=== PATIENT | female | born 1950 | race Hispanic/Latino ===

== ENCOUNTER → 2017-05-07 | Outpatient (CLI) | payer OTHER | LOC: MAMMO 12:10 | PROVIDERS: ATTEND Internal Medicine | DX: Z12.31 Encounter for screening mammogram for malignant neoplasm of breast (principal) | CPT/HCPCS: 77067 ==

== ENCOUNTER → 2019-10-22 | Outpatient (CLI) | payer OTHER ==
[~2019-10-22] MED LIST: FAMOTIDINE20 MG PO; FERROUS SULFAT325 MG PO; FUROSEMIDE20 MG PO; GABAPENTIN300 MG PO; GLIPIZIDE5 MG PO; LIPITOR10 MG PO; LOSARTAN POTAS100 MG PO; METFORMIN HCL500 MG PO; PANTOPRAZOLE SO20 MG PO; PROPRANOLOL HCL10 MG PO; PROTONIX40 MG/ML; SPIRONOLACTONE25 MG PO; folic acid PO
--- NOTE | 2019-10-22 14:04 | Diagnostic Imaging Report ---
EXAM: US PELVIS COMPLETE NON OB DATE: 10/22/2019 1:01 PM INDICATION: Abnormal uterine and vaginal bleeding COMPARISON: None FINDINGS: Transabdominal and transvaginal images of the pelvis were obtained. The uterus measures 8.1 x 4.0 x 4.8 cm. Multiple nabothian cysts are noted within the cervix. There is a heterogeneous intramural fibroid identified within the uterine fundus measuring 2.5 x 2.3 x 2.5 cm. The endometrial stripe is obscured by the uterine fibroid but otherwise appears grossly unremarkable. The ovaries are not visualized transabdominal or transvaginally which may be secondary to their small size and probably adjacent bowel gas. No abnormal adnexal masses are identified. There is a small to moderate amount of free pelvic fluid visualized of unknown etiology. IMPRESSION: Single fibroid identified within the uterine fundus. Nonvisualization of the ovaries which may be secondary to their small size and prominent bowel gas. Small to moderate bowing of free pelvic fluid of unknown etiology. Signed by: Dr. Teodoro Mcintosh MD on 10/22/2019 2:01 PM
== END ==
LOC: US 11:52
PROVIDERS: ATTEND Internal Medicine
DX: N93.9 Abnormal uterine and vaginal bleeding, unspecified (principal); B37.3 Candidiasis of vulva and vagina
CPT/HCPCS: 76830; 76856

== ENCOUNTER → 2019-11-03 | Day surgery (SDC) | payer OTHER ==
[2019-10-30 10:50] LABS: BASOPHILS % 0.5 % (0.0-1.0); EOSINOPHILS # (AUTO) 0.1 (0.0-0.4); EOSINOPHILS % 3.8 % (0.0-6.0); HEMATOCRIT 33.1 % (34.2-44.1); HEMOGLOBIN 10.7 g/dL (12.0-16.0); LYMPHOCYTES # (AUTO) 0.4 (1.0-3.2); LYMPHOCYTES % 9.7 % (18.0-39.1); MEAN CORPUSCULAR HEMOGLOBIN 30.9 pg (28-32); MEAN CORPUSCULAR HGB CONC 32.3 g/dL (31-35); MEAN CORPUSCULAR VOLUME 95.7 fL (81-99); MONOCYTES # (AUTO) 0.4 (0.2-0.8); MONOCYTES % 9.9 % (4.4-11.3); NEUTROPHILS # (AUTO) 2.8 (2.1-6.9); NEUTROPHILS % 75.8 % (38.7-80.0); PLATELET COUNT 55 x10e3/uL (140-360); RED BLOOD COUNT 3.46 x10e6/uL (3.6-5.1)
[2019-10-30 11:01] LABS: INR 1.08; PARTIAL THROMBOPLASTIN TIME 32.5 seconds (23.8-35.5); PROTHROMBIN TIME 14.6 seconds (11.9-14.5)
[2019-10-30 11:10] LABS: ALBUMIN 3.2 g/dL (3.5-5.0); ALBUMIN/GLOBULIN RATIO 0.8 (0.8-2.0); ANION GAP 13.3 mmol/L (8-16); CALCIUM 8.4 mg/dL (8.4-10.2); CREATININE, SERUM 1.08 mg/dL (0.57-1.11); POTASSIUM 4.3 mmol/L (3.5-5.1)
[~2019-11-03] MED LIST changes: +FENTANYL CITRATE/PF 100MCG/2 ML INJ ONE; +MIDAZOLAM HCL 2 MG/2 ML VIAL ONE; +PROPOFOL IV EMULSION 10 MG/ML 20 ML VIAL ONE
[2019-11-03 14:15] VITALS: BP 112/50
== END | disposition home or self-care (01) ==
LOC: OR 11:11
PROVIDERS: ATTEND Internal Medicine Gastroenterology
DX: Z12.11 Encounter for screening for malignant neoplasm of colon (principal); D12.4 Benign neoplasm of descending colon; K74.60 Unspecified cirrhosis of liver; I85.10 Secondary esophageal varices without bleeding; R18.8 Other ascites; K21.9 Gastro-esophageal reflux disease without esophagitis; Z71.3 Dietary counseling and surveillance; R93.89 Abnormal findings on diagnostic imaging of other specified body structures; D69.59 Other secondary thrombocytopenia; E11.9 Type 2 diabetes mellitus without complications; I10 Essential (primary) hypertension; M19.90 Unspecified osteoarthritis, unspecified site; R00.1 Bradycardia, unspecified; Z88.8 Allergy status to other drugs, medicaments and biological substances; Z01.810 Encounter for preprocedural cardiovascular examination; Z01.812 Encounter for preprocedural laboratory examination; Z11.59 Encounter for screening for other viral diseases; Z68.41 Body mass index [BMI] 40.0-44.9, adult
CPT/HCPCS: 36415 ×2; 45385; 80053; 82948; 85025; 85610; 85730; 93005; J2250; J2704; J3010; U0002; 45378

== ENCOUNTER → 2020-08-30 | Day surgery (SDC) | payer OTHER, MEDICARE ==
[2020-08-26 11:30] LABS: BASOPHILS % 0.7 % (0.0-1.0); EOSINOPHILS # (AUTO) 0.1 (0.0-0.4); EOSINOPHILS % 2.2 % (0.0-6.0); HEMATOCRIT 29.1 % (34.2-44.1); HEMOGLOBIN 9.5 g/dL (12.0-16.0); LYMPHOCYTES # (AUTO) 0.5 (1.0-3.2); LYMPHOCYTES % 10.4 % (18.0-39.1); MEAN CORPUSCULAR HEMOGLOBIN 31.8 pg (28-32); MEAN CORPUSCULAR HGB CONC 32.6 g/dL (31-35); MEAN CORPUSCULAR VOLUME 97.3 fL (81-99); MONOCYTES # (AUTO) 0.4 (0.2-0.8); MONOCYTES % 8.1 % (4.4-11.3); NEUTROPHILS # (AUTO) 3.6 (2.1-6.9); NEUTROPHILS % 78.2 % (38.7-80.0); RED BLOOD COUNT 2.99 x10e6/uL (3.6-5.1); RED CELL DISTRIBUTION WIDTH 16.3 % (11.7-14.4)
[2020-08-26 11:31] LABS: PLATELET COUNT 55 x10e3/uL (140-360)
[2020-08-26 11:42] LABS: INR 1.27; PROTHROMBIN TIME 16.6 seconds (11.9-14.5)
[2020-08-26 11:43] LABS: PARTIAL THROMBOPLASTIN TIME 31.7 seconds (23.8-35.5)
[2020-08-26 11:52] LABS: ALBUMIN 3.3 g/dL (3.5-5.0); ALBUMIN/GLOBULIN RATIO 0.8 (0.8-2.0); ANION GAP 12.3 mmol/L (8-16); CALCIUM 8.4 mg/dL (8.4-10.2); CREATININE, SERUM 1.26 mg/dL (0.57-1.11); POTASSIUM 4.3 mmol/L (3.5-5.1)
[~2020-08-30] MED LIST changes: +LEVEMIR FL100 UNIT/1 SC; +LIDOCAINE HCL 2% LOCAL INJ 5 ML SDV VIAL INJ ONE; +POVIDONE IODINE 0.05% 0.05 % ML PO ONE; +SUCRALFATE1 GM PO
[2020-08-30 15:07] VITALS: BP 119/65
== END | disposition home or self-care (01) ==
LOC: OR 10:51
PROVIDERS: ATTEND Internal Medicine Gastroenterology
DX: K74.60 Unspecified cirrhosis of liver (principal); I85.10 Secondary esophageal varices without bleeding; K29.60 Other gastritis without bleeding; K64.1 Second degree hemorrhoids; R18.8 Other ascites; Z71.3 Dietary counseling and surveillance; D69.59 Other secondary thrombocytopenia; E11.9 Type 2 diabetes mellitus without complications; I10 Essential (primary) hypertension; E66.9 Obesity, unspecified; Z01.810 Encounter for preprocedural cardiovascular examination; Z01.812 Encounter for preprocedural laboratory examination; Z20.822 Contact with and (suspected) exposure to COVID-19; Z79.4 Long term (current) use of insulin; Z68.32 Body mass index [BMI] 32.0-32.9, adult; Z83.71 Family history of colonic polyps; Z80.0 Family history of malignant neoplasm of digestive organs
CPT/HCPCS: 36415 ×2; 43239; 45378; 80053; 82948; 85025; 85610; 85730; 88305; 88312; 93005; J2001; J2250; J2704; J3010; U0002